=== PATIENT | male | born 1990 | race Caucasian/White ===

== ENCOUNTER 2022-03-27 13:43 | Emergency (ER) | payer OTHER ==
[~2022-03-27] VITALS: Ht 182.9 cm; Wt 73.5 kg
[2022-03-27 13:57] VITALS: BP 124/72
--- NOTE | 2022-03-27 14:36 | NUR ---
Patient discharged with v/s stable. Written and verbal after care instructions given. Patient verbalized understanding. Ambulatory with steady gait. All questions addressed prior to discharge. Advised to follow up with PMD.
[2022-03-28 09:07] LABS: HEPATITIS B CORE AB TOTAL Negative (Negative); HEPATITIS B SURFACE ANTIBODY Reactive (.); HEPATITIS B SURFACE ANTIGEN Negative (Negative); HEPATITIS C VIRUS ANTIBODY <0.1 s/co ratio (0.0-0.9)
== END 2022-03-27 14:36 | disposition home or self-care (01) ==
LOC: MED 13:43
DX: Z77.21 Contact with and (suspected) exposure to potentially hazardous body fluids (principal); Z00.00 Encounter for general adult medical examination without abnormal findings
CPT/HCPCS: 36415; 86704; 86706; 86803; 87340; 99283